=== PATIENT | male | born 1990 | race African-American/Black ===

== ENCOUNTER 2022-09-15 10:57 | Emergency (ER) | payer OTHER, SELFPAY ==
--- NOTE | 2022-09-15 11:04 | ED.WOUNDLAC ---
HPI - Wound/Laceration General Chief Complaint: Wound/Laceration Stated Complaint: Dressing change on right leg Time Seen by Provider: 09/15/22 11:16 Source: patient and RN notes reviewed Mode of arrival: ambulatory Limitations: no limitations History of Present Illness HPI narrative: 32-year-old male presents for a dressing change. Patient reports he has chronic wound on the back of his right leg from a previous skin graft site. 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 Reports he was in and out of the hospital for this with multiple infections including staff. He reports he was getting dressing changes done by visiting nurses, he was discharged from visiting nurses and then the wound on his leg worsened. Reports he has difficulty using 1 of his hands so he is unable to properly do the dressing change himself. He denies any signs of infection, purulence, change or increase in pain. He reports chronic skin pain at the graft site. He denies fever, aches, chills, sweats Related Data Home Medications Medication Instructions Recorded Confirmed amlodipine 5 mg tablet 5 mg PO DAILY 09/15/22 09/15/22 escitalopram oxalate 10 mg tablet 10 mg PO DAILY 09/15/22 09/15/22 ferrous sulfate 325 mg (65 mg 325 mg PO DAILY 09/15/22 09/15/22 iron) tablet gabapentin 300 mg capsule 300 mg PO TID 09/15/22 09/15/22 glimepiride 2 mg tablet 1 mg PO DAILY 09/15/22 09/15/22 olanzapine 10 mg tablet 10 mg PO 09/15/22 oxycodone-acetaminophen 5 mg-325 1 tablet PO BID PRN Pain 09/15/22 09/15/22 mg tablet quetiapine 300 mg tablet 300 mg PO DAILY 09/15/22 09/15/22 Allergies Allergy/AdvReac Type Severity Reaction Status Date / Time adhesive tape Allergy Unknown Verified 09/15/22 11:57 Review of Systems Review of Systems: CONSTITUTIONAL: Denies malaise, chills, sweats, or fever. SKIN: Reports chronic wound on the right posterior thigh MUSCULOSKELETAL: Denies muscle skeletal pain NEUROLOGIC: Denies numbness, weakness All systems reviewed & are unremarkable except as noted in HPI and below PMFSH Comments At time of signature, agree with nursing past medical, surgical, social and family history. There is no relevant family history pertinent to the presenting complaint Exam Narrative: GENERAL: Well-appearing, well-nourished, and in no acute distress. HEAD: Normocephalic, atraumatic. EYES: PERRLA, conjunctivae clear, and EOMI. ENT: Mucous membranes moist. NECK: Supple. No lymphadenopathy CHEST: Clear to auscultation. No respiratory distress. HEART: Regular rate and rhythm. SKIN: Warm, dry. 5 cm x 5 cm scabbed area noted to the back of the left thigh without surrounding erythema, edema, induration. It is surrounded by an obvious graft site, the graft site is otherwise unremarkable NEURO: Alert and oriented x3. PSYCH: Normal mood and affect Course Course Emergency Course: RN cleansed the wound, apply a had a trip dressing, gauze, ABD and a compression Christo wrap per patient instructions of his typical dressing routine Anticipatory guidance given. Patient agrees to follow-up as directed and is aware of reasons to seek care at the emergency department. Portions of this record may have been created with voice recognition software Level of Care: Express Care Visit Vital Signs Vital signs: Reviewed. MDM - Wound/Laceration MDM Narrative Medical decision making narrative: Exam findings show no acute concerns or changes; patient is non-toxic appearing and is in no distress. Patient is appropriate for outpatient treatment and follow-up. Differential Diagnosis Differential diagnosis: Likely laceration, abrasion and avulsion of skin Critical Care Time Critical Care Time Critical Care Time: No Discharge Plan Discharge Clinical Impression: Dressing change Patient Disposition: Home, Self-Care Condition: Stable Instructions: General Patient Instructions
[2022-09-15 11:07] VITALS: BP 141/95; PULSE 79; RESP 18; TEMP 37.1; O2SAT 99
== END 2022-09-15 11:50 | disposition home or self-care (01) ==
PROVIDERS: Emergency Provider Nurse Practitioner; PCP Family Medicine
DX: Z48.01 Encounter for change or removal of surgical wound dressing (principal); I10 Essential (primary) hypertension; E11.40 Type 2 diabetes mellitus with diabetic neuropathy, unspecified
CPT/HCPCS: 99212; G0463

== ENCOUNTER 2022-10-01 15:19 | Emergency (ER) | payer OTHER, SELFPAY ==
[2022-10-01 15:24] VITALS: BP 109/69; PULSE 80; RESP 16; TEMP 36.9; O2SAT 100
--- NOTE | 2022-10-01 15:33 | ED.WOUNDLAC ---
HPI - Wound/Laceration General Chief Complaint: Wound/Laceration Stated Complaint: Wound Check Time Seen by Provider: 10/01/22 15:31 Source: patient, RN notes reviewed and old records reviewed Mode of arrival: ambulatory Limitations: no limitations History of Present Illness HPI narrative: 32-year-old male presents to the [facility] with a wound check/dressing change. States that he only drainage is the wound dressing once or twice a week. Has friends and family do it. Patient has previous skin graft, has been treating it. Patient reports this all resulted from a brown recluse bite couple years ago. Wound is clean, dry, beefy red center. Related Data Home Medications Medication Instructions Recorded Confirmed amlodipine 5 mg tablet 5 mg PO DAILY 09/15/22 10/01/22 escitalopram oxalate 10 mg tablet 10 mg PO DAILY 09/15/22 10/01/22 ferrous sulfate 325 mg (65 mg 325 mg PO DAILY 09/15/22 10/01/22 iron) tablet gabapentin 300 mg capsule 300 mg PO TID 09/15/22 10/01/22 glimepiride 2 mg tablet 1 mg PO DAILY 09/15/22 10/01/22 olanzapine 10 mg tablet 10 mg PO DAILY 09/15/22 oxycodone-acetaminophen 5 mg-325 1 tablet PO BID PRN Pain 09/15/22 10/01/22 mg tablet quetiapine 300 mg tablet 300 mg PO DAILY 09/15/22 10/01/22 Allergies Allergy/AdvReac Type Severity Reaction Status Date / Time adhesive tape Allergy Unknown Verified 09/15/22 11:57 Review of Systems Review of Systems: All systems reviewed & are unremarkable except as noted in HPI and below Constitutional: Constitutional: Reports no additional constitutional complaints Eyes: Eyes: Reports no additional eye complaints ENT: Reports system reviewed and no additional complaints, except as documented Cardiovascular: Cardiovascular: Reports no additional cardiovascular complaints, Denies chest pain and Denies dyspnea Respiratory: Respiratory: Reports no additional respiratory complaints, Denies chest congestion, Denies cough and Denies dyspnea Gastrointestinal: Gastrointestinal: Reports no additional gastrointestinal complaints, Denies abdominal pain, Denies nausea and Denies vomiting Musculoskeletal: Musculoskeletal: Reports no additional musculoskeletal complaints Integumentary/Breasts: Skin/Breast: Reports as per HPI Neurologic: Reports system reviewed and no additional complaints, except as documented Psychiatric: Psychiatric: Reports no additional psychiatric complaints Allergic/Immunologic: Allergic/Immunologic: Reports no additional allergic/immunologic complaints PMFSH Comments At the time of my signature, I reviewed and agree with the nursing past medical, surgical, social, and family history. There is no relevant family history pertinent to the patient complaint. Exam Const: General: cooperative, healthy appearing, comfortable, no acute distress, well developed, alert and well nourished Nutritional Appearance: well nourished Orientation/consciousness: patient oriented x3 Limitations: no limitations HENMT: Head: normal to inspection Ears: hearing grossly normal bilaterally and external ears normal Face/Nose/Sinus: Normal external nose present, Normal nares present, Normal nasal mucous membranes and turbinates present and normal facial exam Face and sinus: normal facial exam Eyes: General: appearance normal, both eyes and all related structures Alignment and Position: alignment normal Periorbital: periorbital findings normal Pupils: Equal, round and reactive pupils present EOM: EOMs intact bilaterally Neck: Neck: normal visual inspection, full ROM, no lymphadenopathy and no meningeal signs Chest: Chest palpation & inspection: normal inspection of the chest Resp: Effort & Inspection: normal respiratory effort and able to speak in complete sentences Auscultation: clear to auscultation bilaterally, no crackles, no rales, no rhonchi and no wheezes Cardio: Rate: regular rate Rhythm: regular rhythm Back/Spine/Pelvis: Cervical Spine: cervical ROM n
== END 2022-10-01 16:00 | disposition home or self-care (01) ==
PROVIDERS: Emergency Provider Nurse Practitioner; PCP Family Medicine
DX: Z48.01 Encounter for change or removal of surgical wound dressing (principal)
CPT/HCPCS: 99212; G0463